=== PATIENT | female | born 1980 | race Native Hawaiian/Other Pacific Islander ===

== ENCOUNTER 2019-07-24 15:47 | Emergency (ER) | payer OTHER ==
[~2019-07-24] VITALS: Ht 162.6 cm; Wt 77.3 kg
[2019-07-24] MEDS ORDERED: [UNRECOGNIZED DRUG - OTHER] (15:54)
[2019-07-24] MEDS ORDERED: IBUPROFEN 800 MG TAB PO ONE (17:30)
[2019-07-24 17:47] LABS: BASO % 0.3 % (0.0-1.0); EOS # 0.1 10^3/uL (0.0-0.5); EOS % 1.6 % (0.0-3.0); HEMATOCRIT 44.5 % (36.0-47.0); HEMOGLOBIN 14.1 g/dl (12.0-15.5); LYMPH # 1.3 10^3/uL (1.5-5.0); LYMPH % 16.8 % (24.0-44.0); MEAN CORPUSCULAR HEMOGLOBIN 30.1 pg (27.0-33.0); MEAN CORPUSCULAR HGB CONC 31.7 g/dl (32.0-36.5); MEAN CORPUSCULAR VOLUME 95.1 fl (80.0-96.0); MONO # 0.6 10^3/uL (0.0-0.8); MONO % 8.3 % (0.0-5.0); NEUTROPHILS # 5.6 10^3/uL (1.5-8.5); NEUTROPHILS % 72.5 % (36.0-66.0); PLATELET COUNT, AUTOMATED 196 10^3/uL (150-450); RED BLOOD COUNT 4.68 10^6/uL (4.00-5.40); WHITE BLOOD COUNT 7.7 10^3/uL (4.0-10.0)
[2019-07-24 18:03] LABS: INFLUENZA A AMPLIFICATION NEGATIVE (NEGATIVE); INFLUENZA B AMPLIFICATION NEGATIVE (NEGATIVE)
[2019-07-24 18:10] LABS: BLOOD UREA NITROGEN 9 MG/DL (7-18); CALCIUM LEVEL 9.5 MG/DL (8.5-10.1); CARBON DIOXIDE LEVEL 30 MEQ/L (21-32); CHLORIDE LEVEL 106 MEQ/L (98-107); CREATININE FOR GFR 0.73 MG/DL (0.55-1.30); GLOMERULAR FILTRATION RATE > 60.0 (>60); GLUCOSE, FASTING 89 MG/DL (70-100); POTASSIUM SERUM 3.9 MEQ/L (3.5-5.1); SODIUM LEVEL 139 MEQ/L (136-145)
[2019-07-24 18:23] LABS: MONO REFLEX EBV COMP NEGATIVE (NEGATIVE)
[2019-07-24] MEDS ORDERED: AUGM875T28 PO (20:13)
[2019-07-24 20:14] VITALS: BP 116/76
--- NOTE | 2019-07-24 20:51 | REP ---
PA and lateral chest: There are no comparisons. The lung keller are clear. The cardiac size is normal. The ambreen, mediastinum, and skeletal structures are unremarkable. Impression: Negative PA and lateral chest. Electronically Signed by Franklin Glover MD 07/24/2019 08:42 P
[2019-07-27 00:07] LABS: EBV VIRAL CAPSID AG IgG 47.7 U/mL (0.0-17.9); EBV VIRAL CAPSID AG IgM <36.0 U/mL (0.0-35.9)
== END 2019-07-24 20:24 | disposition home or self-care (01) ==
LOC: M ED 15:47
DX: H66.91 Otitis media, unspecified, right ear (principal); J02.9 Acute pharyngitis, unspecified; B34.9 Viral infection, unspecified; F17.200 Nicotine dependence, unspecified, uncomplicated

== ENCOUNTER 2020-05-14 09:30 | Day surgery (SDC) | payer OTHER ==
[~2020-05-14] VITALS: Ht 162.6 cm; Wt 73.5 kg
[~2020-05-14 09:30] MED LIST: AUGM875T28 PO; BUPR-69; BUSP5TAB81 PO; LIDOCAINE 2% 100MG/5ML SDV (FOR ANES.) As Ordered ONE; LUNE2TAB23; MIDAZOLAM INJ 2MG/2ML VIAL (J2250 PER 1MG) As Ordered ONE; [UNRECOGNIZED DRUG - OTHER]; fentaNYL 100 MCG/2 ML INJECTION (J3010) As Ordered ONE; propofoL 200 MG/20 ML VIAL As Ordered ONE
[2020-05-14] MEDS ORDERED: AMIT100TA PO (09:45)
[2020-05-14 10:42] LABS: HEMATOCRIT 41.1 % (36.0-47.0); HEMOGLOBIN 13.1 g/dl (12.0-15.5); MEAN CORPUSCULAR HEMOGLOBIN 29.6 pg (27.0-33.0); MEAN CORPUSCULAR HGB CONC 31.9 g/dl (32.0-36.5); PLATELET COUNT, AUTOMATED 248 10^3/uL (150-450); RED BLOOD COUNT 4.42 10^6/uL (4.00-5.40); WHITE BLOOD COUNT 4.6 10^3/uL (4.0-10.0)
[2020-05-14] MEDS ORDERED: LR 1,000 ML IV ONE (10:45)
[2020-05-14] MEDS ORDERED: NS 800 ML IV ONE (10:45)
[2020-05-14] MEDS ORDERED: ACETAMINOPHEN 650 MG SUPP PR ONE (10:45)
[2020-05-14] MEDS ORDERED: NS 1,000 ML IV SCH (10:45)
[2020-05-14 10:59] LABS: BLOOD UREA NITROGEN 8 MG/DL (7-18); CALCIUM LEVEL 10.2 MG/DL (8.5-10.1); CARBON DIOXIDE LEVEL 27 MEQ/L (21-32); CHLORIDE LEVEL 108 MEQ/L (98-107); CREATININE FOR GFR 0.84 MG/DL (0.55-1.30); GLOMERULAR FILTRATION RATE > 60.0 (>60); GLUCOSE, FASTING 88 MG/DL (70-100); HCG, SERUM QUANTITATIVE < 1.0 MIU/ML; POTASSIUM SERUM 4.4 MEQ/L (3.5-5.1); SODIUM LEVEL 141 MEQ/L (136-145)
[2020-05-14] MEDS ORDERED: ACETAMINOPHEN 650 MG SUPP As Ordered ONE (12:43)
[2020-05-14] MEDS ORDERED: propofoL 200 MG/20 ML VIAL As Ordered ONE (12:47)
[2020-05-14] MEDS ORDERED: dexameTHASONE 4 MG/ML 1ML VIAL (J1100 PER 1MG) As Ordered ONE (13:00)
[2020-05-14] MEDS ORDERED: ONDANSETRON 4MG/2ML VIAL As Ordered ONE (13:00)
[2020-05-14] MEDS ORDERED: KETOROLAC 60MG 2ML VIAL As Ordered ONE (13:00)
[2020-05-14] MEDS: fentaNYL 100 MCG/2 ML INJECTION (J3010) IV PRN ×3 (13:35→13:48)
[2020-05-14] MEDS ORDERED: ONDANSETRON 4MG/2ML VIAL IV PRN (13:45)
[2020-05-14] MEDS ORDERED: METOCLOPRAMIDE INJ 10MG/2ML VIAL (J2765 PER 1) IV PRN (13:45)
[2020-05-14] MEDS ORDERED: LR 1,000 ML IV SCH (13:45)
[2020-05-14] MEDS ORDERED: PERCOCET 5MG/325MG TAB PO PRN (13:45)
[2020-05-14 14:44] VITALS: BP 116/71
== END 2020-05-14 14:44 | disposition home or self-care (01) ==
LOC: M SDC 09:30
PROVIDERS: ATTEND Obstetrics & Gynecology
DX: N93.9 Abnormal uterine and vaginal bleeding, unspecified (principal); F41.9 Anxiety disorder, unspecified; F32.9 Major depressive disorder, single episode, unspecified; Z79.899 Other long term (current) drug therapy
CPT/HCPCS: 36415; 58563; 80048; 84702; 85027; 88305; J1100; J1885; J2250; J2405; J3010

== ENCOUNTER → 2021-01-24 | Outpatient (CLI) | payer OTHER ==
[~2021-01-24] MED LIST changes: +AMIT100TA PO; -LIDOCAINE 2% 100MG/5ML SDV (FOR ANES.) As Ordered ONE; -MIDAZOLAM INJ 2MG/2ML VIAL (J2250 PER 1MG) As Ordered ONE; -fentaNYL 100 MCG/2 ML INJECTION (J3010) As Ordered ONE; -propofoL 200 MG/20 ML VIAL As Ordered ONE
--- NOTE | 2021-01-24 12:14 | REP ---
INDICATION: ENDOMETRIOSIS. Unspecified lower abdominal pain. COMPARISON: None. TECHNIQUE: Transabdominal and transvaginal scanning were performed. FINDINGS: Uterine dimensions are normal at 7.5 x 3.8 x 5.1 cm. Endometrial echo is 0.7 cm thick and centrally placed. No free fluid is seen in the cul-de-sac. Visualized bladder sam are smooth. The right ovary has dimensions of 2.4 x 1.5 x 1.2 cm. It's Doppler flow is normal with a resistive index of 0.56. The left ovary dimensions are normal as well at 2.9 x 1.8 x 1.7 cm. It's Doppler flow was normal with resistive index of 0.57. The ovaries are normal bilaterally. IMPRESSION: Unremarkable pelvic sonography.. <Electronically signed by Shaheed Bragg > 01/24/21 [id number]
== END ==
LOC: M RAD 10:48
PROVIDERS: ATTEND Obstetrics & Gynecology Obstetrics
DX: R10.30 Lower abdominal pain, unspecified (principal)